=== PATIENT | male | born 1975 ===

== ENCOUNTER 2020-12-10 10:24 | Emergency (ER) | payer SELFPAY ==
[~2020-12-10] VITALS: Ht 180.3 cm; Wt 132.6 kg
--- NOTE | 2020-12-10 11:05 | NUR ---
PT STATES "I KNOW I HAVE COVID, MY MOM IS HOSPITALIZED HERE AND TESTED POSITIVE YESTERDAY". PT STATES CLOSE CONTACT WITH MOTHER FREQUENTLY. RESP ISO CART AND SIGNAGE AT DOORWAY. CALL LIGHT WITHIN REACH.
--- NOTE | 2020-12-10 11:36 | NUR ---
COVID SWAB COLLECTED/WALKED TO LAB.
[2020-12-10 11:52] LABS: BASOPHILS % (AUTO) 0 % (0-1); EOSINOPHILS % (AUTO) 0 % (1-7); LYMPHOCYTES % (AUTO) 12 % (22-44); MEAN CORPUSCULAR HEMOGLOBIN 30.9 pg (27.5-34.5); MEAN CORPUSCULAR HGB CONC 34.1 g/dL (33.2-36.2); MEAN PLATELET VOLUME 7.4 fL (7.4-10.4); MONOCYTES % (AUTO) 14 % (2-9); NEUTROPHILS % (AUTO) 73 % (42-75); PLATELET COUNT 334 x10^3/uL (130-400); RED BLOOD COUNT 5.11 x10^6/uL (4.38-5.82); RED CELL DISTRIBUTION WIDTH 13.1 % (9.4-14.8)
[2020-12-10] MEDS ORDERED: SODIUM CHLORIDE FLUSH 10ML SYR IVF ONE (12:00)
[2020-12-10 12:03] LABS: ALANINE AMINOTRANSFERASE 55 U/L (12-78); ALBUMIN 3.9 g/dL (3.4-5.0); ANION GAP 7 mmol/L (5-15); CALCIUM 8.7 mg/dL (8.5-10.1); CHLORIDE 105 mmol/L (98-107); CREATININE 0.87 mg/dL (0.7-1.3)
[2020-12-10 12:07] LABS: ALKALINE PHOSPHATASE 58 U/L (45-117); BILIRUBIN,TOTAL 0.5 mg/dL (0.2-1.0); TOTAL PROTEIN 7.7 g/dL (6.4-8.2); TROPONIN I < 0.015 ng/mL (0.000-0.045)
[2020-12-10 12:11] VITALS: BP 118/61
--- NOTE | 2020-12-10 12:12 | NUR ---
ALL RESULTS BACK, PT FOR RECHECK.
== END 2020-12-10 13:18 | disposition home or self-care (01) ==
LOC: ED 12:00
DX: U07.1 COVID-19 (principal); R06.02 Shortness of breath; R06.00 Dyspnea, unspecified; R94.31 Abnormal electrocardiogram [ECG] [EKG]
CPT/HCPCS: 36415; 71045; 80053; 84484; 85025; 93005; 99285; U0003; U0005